=== PATIENT | male | born 1985 | race Caucasian/White ===

== ENCOUNTER 2021-05-03 13:17 | Emergency (ER) | payer BC ==
[2021-05-03 13:50] VITALS: BP 150/81; PULSE 73
--- NOTE | 2021-05-03 14:45 | EDM.PDOC ---
ED HPI GENERAL MEDICAL PROBLEM - General Chief Complaint: Genitourinary Problem Stated Complaint: SWOLLEN TESTICLE Time Seen by Provider: 05/03/21 13:51 Source of Information: Reports: Patient History Limitations: Reports: No Limitations - History of Present Illness INITIAL COMMENTS - FREE TEXT/NARRATIVE: The patient presents with right testicle swelling and pain. He first noticed it on Wednesday. He has no dysuria, rash, or discharge. He cannot recall any trauma to his testicle. Onset: Gradual Duration: Day(s): Location: Reports: Other (right testicle) Quality: Reports: Sharp Severity: Moderate Improves with: Reports: None Worsens with: Reports: None Associated Symptoms: Reports: No Other Symptoms Right Scrotum Pain Score (Numeric/FACES): 3 - Related Data Allergies Allergy/AdvReac Type Severity Reaction Status Date / Time No Known Allergies Allergy Verified 07/30/19 16:25 Home Meds: Home Meds Sulfamethoxazole/Trimethoprim [Bactrim Ds Tablet] 1 each PO BID #42 tablet 05/03/21 [Rx] Past Medical History - Past Health History Medical/Surgical History: Denies Medical/Surgical History Cardiovascular History: Reports: None Respiratory History: Reports: None Gastrointestinal History: Reports: None Genitourinary History: Reports: None Musculoskeletal History: Reports: None Neurological History: Reports: None Psychiatric History: Reports: None Endocrine/Metabolic History: Reports: None Hematologic History: Reports: None Immunologic History: Reports: None Oncologic (Cancer) History: Reports: None Dermatologic History: Reports: None - Infectious Disease History Infectious Disease History: Reports: None - Past Surgical History HEENT Surgical History: Reports: Oral Surgery Social & Family History - Tobacco Use Tobacco Use Status *Q: Never Tobacco User - Caffeine Use Caffeine Use: Reports: Coffee - Recreational Drug Use Recreational Drug Use: No ED ROS GENERAL - Review of Systems Review Of Systems: See Below Constitutional: Reports: No Symptoms HEENT: Reports: No Symptoms Respiratory: Reports: No Symptoms Cardiovascular: Reports: No Symptoms Endocrine: Reports: No Symptoms GI/Abdominal: Reports: No Symptoms : Reports: Other (Right testicle swelling and pain) ED EXAM, RENAL/ - Physical Exam Exam: See Below Exam Limited By: No Limitations General Appearance: Alert, No Apparent Distress Ears: Normal External Exam Nose: Normal Inspection Head: Atraumatic, Normocephalic Neck: Normal Inspection Respiratory/Chest: No Respiratory Distress, Lungs Clear, Normal Breath Sounds Cardiovascular: Regular Rate, Rhythm, No Edema, No Murmur (Male) Exam: Other (Right testicle pain upon palpation and mild edema) Course - Vital Signs Last Recorded V/S: Last Vital Signs Temp 98.3 F 05/03/21 13:47 Pulse 73 05/03/21 13:47 Resp 20 05/03/21 13:47 BP 150/81 H 05/03/21 13:47 Pulse Ox 100 05/03/21 13:47 - Orders/Labs/Meds Orders: Active Orders 24 hr Category Date Time Status Scrotum and Contents [US] Stat Exams 05/03/21 14:17 Taken Labs: Laboratory Tests 05/03/21 Range/Units 15:35 Urine Color Yellow (Yellow) Urine Appearance Clear (Clear) Urine pH 7.0 (5.0-8.0) Ur Specific [place] > or = 1.030 (1.005-1.030) Urine Protein Negative (Negative) Urine Glucose (UA) Negative (Negative) Urine Ketones Negative (Negative) Urine Occult Blood Negative (Negative) Urine Nitrite Negative (Negative) Urine Bilirubin Negative (Negative) Urine Urobilinogen 0.2 (0.2-1.0) Ur Leukocyte Esterase Negative (Negative) - Re-Assessments/Exams Free Text/Narrative Re-Assessment/Exam: 05/03/21 14:45 I ordered a UA and an US of his scrotum. 05/03/21 17:08 The UA looks good. His US shows the findings are consistent with right sided orchitis with a small [id number] intratesticular abscess in the superior right testis. Moderate right sided hydrocele demonstrating slightly complex features probably mild inflammatory exudate related to orchitis. Small to moderate simple left hydrocele, likely reactive inflammatory exudate related to orchitis. Small to moderate simple left hydrocele, likely reactive. Both testes demonstrate blood flow without evidence of torsion. I called [facility] and talked with Dr Ahn the urologist professor of communication. He recommended bactrim or cipro 2 times per day for 3 weeks. I will have the patient follow up in his clinic. Departure - Departure Time of Disposition: 17:15 Disposition: Home, Self-Care 01 Condition: Good Clinical Impression: Orchitis with abscess, Hydrocele in adult - Discharge Information *PRESCRIPTION DRUG MONITORING PROGRAM REVIEWED*: Not Applicable *COPY OF PRESCRIPTION DRUG MONITORING REPORT IN PATIENT LAURA: Not Applicable Prescriptions: Sulfamethoxazole/Trimethoprim [Bactrim Ds Tablet] 1 each PO BID #42 tablet Referrals: PCP,None [Primary Care Provider] - Nikko Terrell MD [Ordering Only Provider] - 1 Week Forms: ED Department Discharge Additional Instructions: Drink plenty of fluids. Take the bactrim 2 times per day for 3 weeks. Take tylenol or motrin as needed for pain. Wear an athletic supporter or some tighter underwear for more support. Try to take it easy for a few days. Follow up with Dr Ahn or one of his partners at [facility] urology within a week. Please return if you are worse such as more pain, fever, chills, nausea or vomiting or if you don't feel right. Sepsis Event Note (ED) - Evaluation Sepsis Screening Result: No Definite Risk - Focused Exam Vital Signs: Vital Signs Temp Pulse Resp BP Pulse Ox 05/03/21 13:47 98.3 F 73 20 150/81 H 100 - My Orders Last 24 Hours: My Active Orders 05/03/21 14:17 Scrotum and Contents [US] Stat - Assessment/Plan Last 24 Hours: My Active Orders 05/03/21 14:17 Scrotum and Contents [US] Stat
--- NOTE | 2021-05-04 09:52 | US ---
Testicular ultrasound: Multiple real-time images were obtained of both testicles. Comparison: No prior testicular exam is available. Findings: Right testicle is somewhat enlarged and shows diffuse heterogeneity. There is a focal fluid collection within the right testicle measuring 9 x 5 x 7 mm. Left testicle shows normal homogeneous appearance. Arterial and venous blood flow are seen within both testicles. Very small bilateral hydroceles are noted. Very small areas of increased echoes are seen within the right hydrocele which is compatible with complicated fluid. Measurements: Right testicle: 5.4 x 3.2 x 3.7 cm Left testicle: 4.8 x 2.8 x 3.2 cm Impression: 1. Abnormal right testicle which is slightly enlarged and is diffusely heterogeneous. Findings most likely represent diffuse orchitis. Probable focal abscess within the right testicle measuring 9 x 5 x 7 mm. 2. Slightly complicated right-sided hydrocele suspicious for change due to orchitis. 3. Left testicle appears normal. Minimal hydrocele is noted on the left side. Diagnostic code #5 I agree with preliminary report from [facility], finalized on 05/03/21, 5:42 PM CDT, code 1
== END 2021-05-03 17:10 | disposition home or self-care (01) ==
LOC: JD.ED 13:17
DX: N45.2 Orchitis (principal); N43.3 Hydrocele, unspecified
CPT/HCPCS: 76870; 76870-26; 81003; 93975; 99283; 99284-25